=== PATIENT | male | born 1955 | race African-American/Black ===

== ENCOUNTER 2019-02-25 12:04 | Emergency (ER) | payer OTHER ==
[~2019-02-25] VITALS: Ht 177.8 cm; Wt 100.0 kg
[2019-02-25 12:09] VITALS: Ht 177.8 cm; Wt 100.0 kg
--- NOTE | 2019-02-25 12:42 | ERD ---
ER Documentation Chief Complaint Chief Complaint pt is bib self with c/o chest pain and feeling sob, hx COPD HPI This is a 63-year-old man with a history of COPD presenting with wheezing x3 to 4 days, he has had sharp nonexertional nonradiating chest pain with cough x3 days as well. He states the cough is what precipitates the chest pain, and states he ran out of his albuterol a few days ago. Patient denies fevers or chills, no sore throat, no vomiting or diarrhea, no headache or blurry vision ROS All systems reviewed and are negative except as per history of present illness. Medications Home Meds Active Scripts Prednisone* (Prednisone*) 20 Mg Tab, 40 MG PO DAILY for 4 Days, TAB Prov:CHAR RILEY MD 02/25/19 Albuterol Sulfate* (Proair HFA*) 8.5 Gm Hfa.aer.ad, 2 PUFF INH Q6H PRN for WHEEZING AND SOB, #1 INHALER Prov:CHAR RILEY MD 02/25/19 Allergies Allergies: Coded Allergies: Penicillins (Verified Allergy, Unknown, 02/25/19) PMhx/Soc COPD FmHx Family History: No diabetes Physical Exam Vitals Vital Signs Date Temp Pulse Resp B/P (MAP) Pulse Ox O2 O2 Flow FiO2 Time Delivery Rate 02/25/19 91 20 99 Nasal 1.0 13:04 Cannula 02/25/19 98.3 94 24 150/95 98 Room Air 12:40 (113) 02/25/19 Nasal 1 12:40 Cannula 02/25/19 98.3 97 24 158/77 98 12:09 (104) Physical Exam GENERAL: Well-developed, well-nourished, well-hydrated, in no apparent distress, looks nontoxic in appearance HEENT: Moist mucous membranes, pink conjunctiva, no cervical spine tenderness or step-off deformities, no goiter, no jaundice or icterus, extraocular movements intact without pain. No submandibular induration, and no pharyngeal erythema NEURO: Alert and oriented 3, cranial nerves II through XII intact bilaterally, pupils equal round reactive to light, no focal deficits or facial asymmetry, sensation intact distally Strength 5/5 in upper and lower extremities bilaterally CARDIAC: Regular rate and rhythm, no murmurs rubs or gallops LUNGS: Poor breath sounds bilaterally and scattered wheezes, no crackles or stridor ABDOMEN: Soft nontender, no guarding, no rigidity, no rebound, no psoas sign no obturator sign. Normoactive bowel sounds SKIN: Warm and dry to touch, no abrasions, contusions, or hematomas, no lacerations, no ecchymosis, no target lesions, and without ulcers EXTREMITIES: No clubbing cyanosis or edema, calves are bilaterally symmetrical, no Homans sign, no popliteal cord sign. Distal pulses equal and bilateral PSYCH: Normal affect without agitation or irritability Result Diagram: 02/25/19 1258 02/25/19 1258 Results 24 hrs Laboratory Tests Test 02/25/19 12:58 White Blood Count 8.2 10^3/ul Red Blood Count 4.35 10^6/ul Hemoglobin 11.6 g/dl Hematocrit 35.6 % Mean Corpuscular Volume 81.8 fl Mean Corpuscular Hemoglobin 26.7 pg Mean Corpuscular Hemoglobin Concent 32.6 g/dl Red Cell Distribution Width 14.6 % Platelet Count 100 10^3/UL Mean Platelet Volume 11.6 fl Immature Granulocytes % 0.700 % Neutrophils % 66.4 % Lymphocytes % 22.3 % Monocytes % 8.8 % Eosinophils % 1.6 % Basophils % 0.2 % Nucleated Red Blood Cells % 0.0 /100WBC Immature Granulocytes # 0.060 10^3/ul Neutrophils # 5.4 10^3/ul Lymphocytes # 1.8 10^3/ul Monocytes # 0.7 10^3/ul Eosinophils # 0.1 10^3/ul Basophils # 0.0 10^3/ul Nucleated Red Blood Cells # 0.0 10^3/ul Sodium Level 144 mmol/L Potassium Level 3.1 mmol/L Chloride Level 110 mmol/L Carbon Dioxide Level 24 mmol/L Anion Gap 10 Blood Urea Nitrogen 14 mg/dl Creatinine 0.78 mg/dl Est Glomerular Filtrat Rate mL/min > 60 mL/min Glucose Level 117 mg/dl Calcium Level 8.8 mg/dl Total Bilirubin 0.9 mg/dl Direct Bilirubin 0.00 mg/dl Indirect Bilirubin 0.9 mg/dl Aspartate Amino Transf (AST/SGOT) 55 IU/L Alanine Aminotransferase (ALT/SGPT) 65 IU/L Alkaline Phosphatase 70 IU/L Troponin I < 0.012 ng/ml Total Protein 7.1 g/dl Albumin 4.0 g/dl Globulin 3.10 g/dl Albumin/Globulin Ratio 1.29 Lipase 104 U/L Current Medications Medications Dose Sig/[place] Start Time Status Last (Trade) Ordered Route PRN Stop Time Admin Dose Reason Admin Albuterol 10 mg ONCE STAT 02/25/19 DC 02/25/19 (Proventil INH 12:46 13:03 0.5% (Neb)) 02/25/19 12:47 Ipratropium 1 mg ONCE STAT 02/25/19 DC 02/25/19 [place] INH 12:46 13:03 (Atrovent 02/25/19 12:47 0.02% (Neb)) 125 mg ONCE STAT 02/25/19 DC 02/25/19 Methylprednis IV 12:46 12:55 olone Sodium 02/25/19 12:47 Succinate (Solu-Medrol) Sodium 500 ml @ Q1H STAT 02/25/19 DC 02/25/19 Chloride 500 mls/hr IV 12:46 12:55 02/25/19 13:45 Procedures/MDM IV line was established patient was placed on manager cardiac cath rhythm strip revealed a sinus tachycardia at 100 bpm with upright P and T waves. Patient was afebrile EKG performed, read by me revealed a normal sinus rhythm at 96 bpm, normal axis, narrow QRS complex, no concerning ST elevations or depressions noted One AP view of the chest performed, read by me reveals no acute infiltrates, normal mediastinum, sharp costophrenic and cardiac borders, no air under the diaphragm. Otherwise unremarkable chest x-ray. I administered albuterol 10 mg via nebulizer, ipratropium 1 mg via nebulizer, methylprednisolone 125 mg IV x1, and 500 cc normal saline IV. CBC was unremarkable, electrolytes within normal limits although potassium slightly low, liver function test normal, troponin negative. Differential diagnoses considered, included but not limited to acute coronary syndrome, pulmonary embolism, aortic dissection, abdominal aortic aneurysm, sepsis, stroke, meningitis, encephalitis, pneumonia, appendicitis, cholecystitis, bowel obstruction, pyelonephritis, nephrolithiasis, cystitis, as well as metabolic, hematologic, and electrolyte abnormalities. As well as abscess, cellulitis, fractures, and dislocations. Patient feels much better at this time, and vital signs are normal, symptoms have improved. I did give strict instructions to return to the ED if symptoms continue or worsen, patient will otherwise follow-up with primary care physician. Patient understood instructions and agreed to plan. Disclaimer: Inadvertent spelling and grammatical errors are likely due to EHR/dictation software use and do not reflect on the overall quality of patient care. Also, please note that the electronic time recorded on this note does not necessarily reflect the actual time of the patient encounter. Departure Diagnosis: Primary Impression: Chest pain Chest pain type: unspecified Qualified Codes: R07.9 - Chest pain, unspecified Additional Impression: COPD (chronic obstructive pulmonary disease) COPD type: COPD with acute exacerbation Qualified Codes: J44.1 - Chronic obstructive pulmonary disease with (acute) exacerbation Condition: CHAR Mercedes MD February 25, 2019 12:42
[2019-02-25] MEDS ORDERED: ALBUTEROL 0.5% (NEB) 2.5 MG/0.5 ML AMP INH STA (12:46)
[2019-02-25] MEDS ORDERED: METHYLPREDNISOLONE 125 MG INJ IV STA (12:46)
[2019-02-25] MEDS ORDERED: SOD CHLORIDE 0.9% 500 ML IV STA (12:46)
[2019-02-25] MEDS ORDERED: IPRATROPIUM (NEB) 0.5 MG/2.5 ML AMP INH STA (12:46)
[2019-02-25] MEDS ORDERED: ALBU8.5H8 INH (13:48)
[2019-02-25] MEDS ORDERED: PRED20TA PO (13:48)
[2019-02-25 14:00] VITALS: BP 122/107; PULSE 84; RESP 22
== END 2019-02-25 14:07 | disposition home or self-care (01) ==
LOC: E/R 12:04
DX: J44.1 Chronic obstructive pulmonary disease with (acute) exacerbation (principal)
CPT/HCPCS: 36415; 71045; 80053; 83690; 84484; 85025; 94644; 96374; J2930; J7040; Z7502; Z7610